=== PATIENT | female | born 1950 | race Caucasian/White ===

== ENCOUNTER 2019-04-27 09:24 | Emergency (ER) | payer MEDICARE, BC ==
--- NOTE | 2019-04-27 10:14 | UC ---
Respiratory Complaint HPI - HPI Summary HPI Summary: 68 yo female presents with right ear pain and chest congestion for the last week. She tells me that 1 week ago she developed some nausea and dry cough. 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 She felt better 2 days later. The day after that her cough returned and is now productive with green phelgm. Her right ear pain also returned and has decreased hearing from that side. Also has some sinus congestion and post nasal drip. She has not taken anything OTC other than her herbs. Denies fever, chills , SOB, chest pain, n/v. - History of Current Complaint Stated Complaint: CHEST CONGESTION Time Seen by Provider: 04/27/19 10:14 Hx Obtained From: Patient Onset/Duration: Gradual Onset Severity Initially: Mild Severity Currently: Moderate Pain Intensity: 7 Pain Scale Used: 0-10 Numeric - Allergies/Home Medications Allergies/Adverse Reactions: Allergies Allergy/AdvReac Type Severity Reaction Status Date / Time oxytetracycline Allergy unk Verified 04/27/19 10:20 [From Terramycin with Polymyxin B] Penicillins Allergy unk Verified 04/27/19 10:20 polymyxin B Allergy unk Verified 04/27/19 10:20 [From Terramycin with Polymyxin B] PMH/Surg Hx/FS Hx/Imm Hx - Additional Past Medical History Additional PMH: None - Surgical History Surgical History: Yes Surgery Procedure, Year, and Place: OVARIAN CYSTS REMOVED. MOLES REMOVED. LEFT KNEE REPLACEMENT 09/2015 [facility] - Family History Known Family History: Positive: Non-Contributory - Social History Lives: With Family Alcohol Use: Occasionally Substance Use Type: None Smoking Status (MU): Never Smoked Tobacco Review of Systems All Other Systems Reviewed And Are Negative: No Constitutional: Positive: Negative Skin: Positive: Negative Eyes: Positive: Negative ENT: Positive: Ear Ache, Nasal Discharge, Sinus Congestion, Sinus Pain/ Tenderness Respiratory: Positive: Cough Cardiovascular: Positive: Negative Gastrointestinal: Positive: Negative Neurological: Positive: Negative Psychological: Positive: Negative Physical Exam - Summary Physical Exam Summary: GENERAL: NAD. WDWN. No pain distress. SKIN: No rashes, sores, lesions, or open wounds. HEENT: Head: AT/NC Eyes: EOM intact. Conjunctiva clear without inflammation or discharge. Ears: Hearing grossly normal. RIGHT EAR with brown cerumen occluded canal. S/p disimpaction: right ear canal mild edema and white discharge. TMs intact, no bulging, erythema, or edema. Nose: Nasal mucosa mildly swollen and erythematous with clear discharge. TTP frontal sinus. Positive post nasal drip Throat: Posterior oropharynx without exudates, erythema, or tonsillar enlargement. Uvula midline. NECK: Supple. Nontender. No lymphadenopathy. CHEST: CTAB. No r/r/w. No accessory muscle use. Breathing comfortably and in no distress. CV: RRR. Without m/r/g. Pulses intact. NEURO: Alert. PSYCH: Age appropriate behavior. Triage Information Reviewed: Yes Vital Signs: Vital Signs: Temp Pulse Resp BP Pulse Ox 98.2 F 76 16 141/91 97 04/27/19 10:15 04/27/19 10:15 04/27/19 10:15 04/27/19 10:15 04/27/19 10:15 Vital Signs Reviewed: Yes Diagnostics - Radiology CXR Radiology Interpretation Completed By: Radiologist Summary of Radiographic Findings: IMPRESSION: No active cardiopulmonary disease is noted. Hyperinflated lung leon. Respiratory Course/Dx - Course Course Of Treatment: Right ear cerumen impaction - successful disimpaction with water irrigation. ? otitis externa vs irritation from irrigation. Suspect bronchitis. Will rx for cough syrup at bedtime and zpak to take if symptoms do not begin to improve within the next 3-4 days. - Differential Dx/Diagnosis Provider Diagnosis: Bronchitis, Cerumen impaction Discharge ED - Sign-Out/Discharge Documenting (check all that apply): Patient Departure All imaging exams completed and their final reports reviewed: Yes - Discharge Plan Condition: Stable Disposition: HOME Prescriptions: Azithromycin TAB* [Zithromax TAB (Z-ERIK) 250 mg #6 tabs] 2 tab PO .TODAY, THEN 1 DAILY #1 erik Codeine Phosphate/Guaifenesin [Guaifen-Codeine 100-10 mg/5 ml] 5 ml PO BEDTIME PRN #35 ml MDD 5mL PRN Reason: Cough Ofloxacin 0.3% (Ear Drop)* [Floxin 0.3% OTIC.VENECIA (Ear Drop)] 5 drop RIGHT EAR BID #1 btl Patient Education Materials: Cerumen Impaction (ED), Acute Bronchitis (ED) Referrals: Zuleima Ariza MD [Primary Care Provider] - Additional Instructions: If you develop a fever, shortness of breath, chest pain, new or worsening symptoms - please call your PCP or go to the ED immediately. Your blood pressure was high at todays visit. Please see your primary provider within 4 weeks for recheck and re-evaluation. - Billing Disposition and Condition Condition: STABLE Disposition: Home - Attestation Statements Provider Attestation: I was available for consult. This patient was seen by the JONNA. The patient was not presented to, seen by, or examined by me. -Annamarie
[2019-04-27 10:19] VITALS: BP 141/91
== END 2019-04-27 11:47 | disposition home or self-care (01) ==
LOC: UCEAST 09:24
DX: H61.21 Impacted cerumen, right ear (principal); J40 Bronchitis, not specified as acute or chronic; Z88.0 Allergy status to penicillin
CPT/HCPCS: 71046; 99213; G0463

== ENCOUNTER 2019-09-17 06:31 | Day surgery (SDC) | payer MEDICARE ==
[~2019-09-17 06:31] MED LIST: Buffered Lidocaine 1% SYRIN 1 ml INTRADERM ONE
[2019-09-17] MEDS ORDERED: fentaNYL 100 mcg/2 ml 50 MCG/ML VIAL ONE (07:40)
[2019-09-17] MEDS ORDERED: Midazolam 2 mg/2 ml VIAL 1 mg/ml 2 ml VIAL (2 mg) ONE (07:40)
[2019-09-17 08:35] VITALS: BP 130/83
[2019-09-17] MEDS ORDERED: Phenylephrine 2.5% OPHTH SOL 2 ml BTL ONE (13:45)
[2019-09-17] MEDS ORDERED: Neomycin/Polymy/Dex OPTH.SUSP MAXITROL 0.1% 5 ML ONE (13:45)
[2019-09-17] MEDS ORDERED: Cyclopentolate 1% OPTH.SOL 2 ML BTL ONE (13:45)
[2019-09-17] MEDS ORDERED: Lidocaine 1% MPF 5 ML VIAL ONE (13:45)
[2019-09-17] MEDS ORDERED: Povidone Iodine 5% OPTH 30 ML BTL ONE (13:45)
[2019-09-17] MEDS ORDERED: Proparacaine 0.5% OPHTH.SOL 15 ML BTL ONE (13:45)
[2019-09-17] MEDS ORDERED: Ketorolac 0.5% OPHTH (NF) 0.5 % 5 ML BTL ONE (13:45)
[2019-09-17] MEDS ORDERED: Lidocaine 2% w/ EPI 1:200,000 MPF 20 ML SDV VIAL ONE (13:45)
== END 2019-09-17 08:48 | disposition home or self-care (01) ==
LOC: OREAST 06:31
PROVIDERS: ATTEND Specialist
DX: H25.811 Combined forms of age-related cataract, right eye (principal); H35.363 Drusen (degenerative) of macula, bilateral; H18.51 Endothelial corneal dystrophy; Z88.0 Allergy status to penicillin; Z88.1 Allergy status to other antibiotic agents; M19.90 Unspecified osteoarthritis, unspecified site; Z87.891 Personal history of nicotine dependence

== ENCOUNTER 2019-09-24 07:01 | Day surgery (SDC) | payer MEDICARE ==
[2019-09-24] MEDS ORDERED: fentaNYL 100 mcg/2 ml 50 MCG/ML VIAL ONE (09:08)
[2019-09-24] MEDS ORDERED: Midazolam 2 mg/2 ml VIAL 1 mg/ml 2 ml VIAL (2 mg) ONE (09:08)
[2019-09-24] MEDS ORDERED: Lidocaine 2% PF 5 ML VIAL ONE (09:28)
[2019-09-24] MEDS ORDERED: Propofol 10 MG/ML 20 ML BTL ONE (09:28)
[2019-09-24 10:16] VITALS: BP 116/74
[2019-09-24] MEDS ORDERED: Ketorolac 0.5% OPHTH (NF) 0.5 % 5 ML BTL ONE (13:21)
[2019-09-24] MEDS ORDERED: Lidocaine 2% w/ EPI 1:200,000 MPF 20 ML SDV VIAL ONE (13:21)
[2019-09-24] MEDS ORDERED: Neomycin/Polymy/Dex OPTH.SUSP MAXITROL 0.1% 5 ML ONE (13:21)
[2019-09-24] MEDS ORDERED: Lidocaine 1% MPF 5 ML VIAL ONE (13:21)
[2019-09-24] MEDS ORDERED: Proparacaine 0.5% OPHTH.SOL 15 ML BTL ONE (13:21)
[2019-09-24] MEDS ORDERED: Cyclopentolate 1% OPTH.SOL 2 ML BTL ONE (13:21)
[2019-09-24] MEDS ORDERED: Povidone Iodine 5% OPTH 30 ML BTL ONE (13:21)
[2019-09-24] MEDS ORDERED: Phenylephrine 2.5% OPHTH SOL 2 ml BTL ONE (13:21)
== END 2019-09-24 10:27 | disposition home or self-care (01) ==
LOC: OREAST 07:01
PROVIDERS: ATTEND Specialist
DX: H25.812 Combined forms of age-related cataract, left eye (principal); H35.363 Drusen (degenerative) of macula, bilateral; H18.51 Endothelial corneal dystrophy; Z88.0 Allergy status to penicillin; Z88.1 Allergy status to other antibiotic agents; M19.90 Unspecified osteoarthritis, unspecified site; Z87.891 Personal history of nicotine dependence